=== PATIENT | female | born 1955 | race Hispanic/Latino ===

== ENCOUNTER 2017-02-13 17:47 | Inpatient (IN) | payer BC ==
[2017-02-13 17:59] VITALS: BMI 52.2
[2017-02-13 18:21] LABS: ADD MANUAL DIFF? NO
[2017-02-13 18:24] LABS: BASO # 0.08 K/mm3 (0.0-2.0); BASO % 0.6 % (0.0-3.0); EOS # 0.2 (0.0-0.7); EOS % 1.9 % (1.5-5.0); GRAN % 80.7 % (50.0-68.0); HEMATOCRIT 35.7 % (36.0-48.0); LYMPH # 1.3 (1.2-3.4); LYMPH % 10.3 % (22.0-35.0); MEAN CORPUSCULAR HGB CONC 30.3 g/dl (31.0-37.0); MEAN PLATELET VOLUME 9.6 fl (7.0-11.0); MONO # 0.8 (0.1-0.6); MONO % 6.5 % (1.0-6.0); PLATELET COUNT 325 10^3/uL (120.0-450.0); RED CELL DISTRIBUTION WIDTH 15.6 % (11.5-14.5); WHITE BLOOD COUNT 12.9 10^3/ul (4.5-11.0)
[2017-02-13 18:26] LABS: VENOUS BLOOD GAS BASE EXCESS 2.8 mmol/L (0.0-2.0); VENOUS BLOOD PH 7.36 (7.32-7.43)
--- NOTE | 2017-02-13 18:29 | ED PDOC ---
Arrival/HPI <Josh Gill - Last Filed: 02/13/17 20:19> <Darek Olson - Last Filed: 02/16/17 11:45> - General Chief Complaint: Shortness Of Breath Time Seen by Provider: 02/13/17 17:48 - History of Present Illness Narrative History of Present Illness (Text): 61F c/o SOB worse w exertion and lying flat worsening over the last month. she reports occasionally productive cough and says her pcp rx levaquin and then a zpack but she is not better. she has to sleep sitting up at night and recently noticed swelling in her legs and abdomen. no fever. (Darek Olson) Past Medical History - Infectious Disease Hx of Infectious Diseases: None - Cardiac Hx Hypertension: Yes - Pulmonary Hx Asthma: Yes - Musculoskeletal/Rheumatological Hx Osteoarthritis: Yes - Gastrointestinal Hx Crohn's Disease: Yes - Psychiatric Hx Substance Use: No - Surgical History Hx Section: Yes (x1) Hx Tubal Ligation: Yes - Anesthesia Hx Anesthesia Reactions: No Hx Malignant Hyperthermia: No <Darek Olson - Last Filed: 02/16/17 11:45> Family/Social History Family/Social History: Other (nc) Smoking Status: Former Smoker Hx Alcohol Use: No Hx Substance Use: No <Darek Olson - Last Filed: 02/16/17 11:45> Allergies/Home Meds <Josh Gill - Last Filed: 02/13/17 20:19> <Darek Olson - Last Filed: 02/16/17 11:45> Allergies/Adverse Reactions: Allergies strawberry Allergy (Verified 02/13/17 17:48) RASH Home Medications: Home Meds Medication Instructions Recorded Confirmed Albuterol Sulfate [Proair Hfa] 1 puff INH Q4 02/13/17 02/13/17 Budesonide/Formoterol Fumarate 1 puff INH BID 02/13/17 02/13/17 [Symbicort 160-4.5 Mcg Inhaler] Lisinopril [Zestril] 40 mg PO DAILY 02/13/17 02/13/17 Mesalamine W/Cleansing Wipes 4 gm [place] DAILY 02/13/17 02/13/17 [Mesalamine 4 gm/60 ml Kit] Mesalamine [Lialda] 1.2 gm PO DAILY 02/13/17 02/13/17 Mupirocin 2% Cream [Bactroban 1 % TOP DAILY 02/13/17 02/13/17 Cream] traMADol [Ultram] 50 mg PO Q8 02/13/17 02/13/17 Review of Systems - Physician Review All systems were reviewed & negative as marked: Yes - Review of Systems Constitutional: absent: Fevers Respiratory: SOB, Cough, Sputum Cardiovascular: Edema. absent: Chest Pain, Calf Pain Gastrointestinal: absent: Nausea, Vomiting <Darek Olson - Last Filed: 02/16/17 11:45> Physical Exam Vital Signs Reviewed: Yes Pain Distress: None Mental Status: Positive for: Alert and Oriented X 3 - Systems Exam Head: Present: Atraumatic Pupils: Present: PERRL Mouth: Present: Moist Mucous Membranes Neck: Present: Normal Range of Motion Respiratory/Chest: Present: Clear to Auscultation, Decreased Breath Sounds. No : Respiratory Distress, Accessory Muscle Use Cardiovascular: Present: Regular Rate and Rhythm. No: Murmurs Abdomen: Present: Other (pitting edema in lower abdomen). No: Tenderness, Distention Upper Extremity: Present: NORMAL PULSES Lower Extremity: Present: Edema (3+ BLE), NORMAL PULSES Neurological: Present: GCS=15, Motor Func Grossly Intact, Normal Sensory Function Skin: Present: Warm, Dry Psychiatric: Present: Alert, Oriented x 3 <Darek Olson - Last Filed: 02/16/17 11:45> Vital Signs Pulse Resp BP Pulse Ox 02/13/17 22:23 96 H 24 139/98 H 96 02/13/17 18:29 174/93 H 02/13/17 17:47 24 92 L Medical Decision Making <Josh Gill - Last Filed: 02/13/17 20:19> <Darek Olson - Last Filed: 02/16/17 11:45> ED Course and Treatment: ecg- nsr 99, LAFB, no acute ischemia (Darek Olson) - Lab Interpretations Lab Results: 02/14/17 06:30 02/14/17 06:30 Lab Results 02/14/17 06:30: WBC 11.4 H, RBC 4.50, Hgb 10.2 L, Hct 34.6 L, MCV 76.9 L, MCH 22.7 L, MCHC 29.5 L, RDW 15.7 H, Plt Count 332, MPV 9.5, Gran % 77.3 H, Lymph % (Auto) 12.8 L, [place] % (Auto) 7.4 H, Eos % (Auto) 1.9, Baso % (Auto) 0.6, Gran # 8.84 H, Lymph # 1.5, [place] # 0.9 H, Eos # 0.2, Baso # 0.07, Sodium 143, Potassium 3.4 L, Chloride 101, Carbon Dioxide 34 H, Anion Gap 11, BUN 12, Creatinine 0.6, Est GFR ( Amer) > 60, Est GFR (Non-Af Amer) > 60, Random Glucose 111 H, Hemoglobin A1c 6.6 H, Calcium 8.4, Magnesium 2.1, Total Bilirubin 0.9, AST 35, ALT 43, Alkaline Phosphatase 69, Troponin I 0.06, Total Protein 6.2, Albumin 3.4, Globulin 2.8, Albumin/Globulin Ratio 1.2, Triglycerides 71, Cholesterol 121 L, LDL Cholesterol Direct 73, HDL Cholesterol 33 02/13/17 18:10: WBC 12.9 H, RBC 4.70, Hgb 10.8 L, Hct 35.7 L, MCV 76.0 L, MCH 23.0 L, MCHC 30.3 L, RDW 15.6 H, Plt Count 325, MPV 9.6, Gran % 80.7 H, Lymph % (Auto) 10.3 L, [place] % (Auto) 6.5 H, Eos % (Auto) 1.9, Baso % (Auto) 0.6, Gran # 10.40 H, Lymph # 1.3, [place] # 0.8 H, Eos # 0.2, Baso # 0.08, pO2 60 H, VBG pH 7.36, VBG pCO2 52.0, VBG HCO3 29.4 H, VBG Total CO2 31.0 H, VBG O2 Sat (Calc) 91.4 H, VBG Base Excess 2.8 H, VBG Potassium 3.6, Glucose 129 H, Lactate 1.3, FiO2 21.0, Sodium 142.0, Potassium 3.6, Chloride 108.0 H, Carbon Dioxide 29, Anion Gap 11, BUN 16, Creatinine 0.6, Est GFR ( Amer) > 60, Est GFR (Non- Af Amer) > 60, Random Glucose 126 H, Calcium 8.5, Total Bilirubin 1.0, AST 44 H , ALT 47, Alkaline Phosphatase 73, Troponin I 0.05, NT-Pro-B Natriuret Pep 3350 H, Total Protein 6.5, Albumin 3.5, Globulin 3.0, Albumin/Globulin Ratio 1.2, Venous Blood Potassium 3.6 - RAD Interpretation Radiology Orders: 02/13/17 18:19 CHEST PORTABLE [RAD] Stat - Medication Orders Current Medication Orders: Albuterol/Ipratropium (Duoneb 3 Mg/0.5 Mg (3 Ml) Ud) 3 ml IH Q4 [facility] Last Admin: 02/16/17 08:30 Dose: Not Given Non-Admin Reason: Patient in Cardiology Aspirin (Aspirin) 325 mg PO DAILY [facility] Last Admin: 02/16/17 06:32 Dose: 325 MG Betamethasone/Clotrimazole (Lotrisone) 1 gm TOP BID [facility] Last Admin: 02/15/17 17:55 Dose: Not Given Non-Admin Reason: Patient Refused Clopidogrel Bisulfate (Plavix) 75 mg PO DAILY [facility] Last Admin: 02/16/17 06:33 Dose: 75 MG Furosemide (Lasix) 40 mg IVP DAILY [facility] Last Admin: 02/15/17 09:23 Dose: 40 MG MAR Blood Pressure Document 02/15/17 09:23 [facility] (Rec: 02/15/17 09:24 [id number] Blood Pressure Blood Pressure (100/60-150/90) 134/87 IVP Administration Document 02/15/17 09:23 [facility] (Rec: 02/15/17 09:24 [id number] Charges for Administration # of IVP Administrations 1 Lisinopril (Zestril) 40 mg PO DAILY [facility] Last Admin: 02/16/17 06:33 Dose: 40 MG Zolpidem Tartrate (Ambien) 5 mg PO HS PRN; Protocol PRN Reason: Insomnia Last Admin: 02/15/17 22:43 Dose: 5 MG Behavioural Document 02/15/17 22:43 MS (Rec: 02/15/17 22:43 MS [id number]) Maintenance Maintenance Dose No Nonmedicinal Nonmedicinal Interventions Redirect Therapeutic Communication Behavior Behavior for Medication: Insomnia Discontinued Medications Atropine Sulfate (Atropine) Confirm Administered Dose 1 mg .ROUTE .STSproutel-MED ONE Stop: 02/16/17 06:54 Last Admin: 02/16/17 11:06 Dose: Bivalirudin (Angiomax) Confirm Administered Dose 250 mg IV .STK-MED ONE Stop: 02/16/17 06:54 Last Admin: 02/16/17 11:04 Dose: 250 MG Comments: AngioMax IV Bolus 19 ml was given @ 0809, followed by an IV Drip @ 44 ml/hr - Discontinued @ 0841. eMAR Start Stop Document 02/16/17 11:04 KPA (Rec: 02/16/17 11:05 KPA [id number]) Intravenous Solution Start Date 02/16/17 Start Time 08:09 End Date 02/16/17 End time 08:41 Total Infusion Time 32 Clopidogrel Bisulfate (Plavix) 600 mg PO STAT STA Stop: 02/15/17 12:25 Last Admin: 02/15/17 12:43 Dose: 600 MG Clopidogrel Bisulfate (Plavix) Confirm Administered Dose 75 mg .ROUTE .Intrallect-MED ONE Stop: 02/16/17 06:32 Enoxaparin Sodium (Lovenox) 120 mg SC Q12H TIESHA PRN Reason: Protocol Last Admin: 02/15/17 07:44 Dose: 120 MG Subcutaneous Administrations Document 02/15/17 07:44 SPA (Rec: 02/15/17 07:44 SPA [id number]) Injection Site MAR Injection Site Right Abdomen Charges for Administration # of Subcutaneous Administrations 1 Eptifibatide (Integrilin Bolus) Confirm Administered Dose 60 mg IVP .STK-MED ONE Stop: 02/16/17 08:30 Last Admin: 02/16/17 08:30 Dose: 22.6 MG Comments: Dr. Leighann Leong adm. Integrilin IV Bolus 11.3 ml, an additional dose of Integrilin IV Bolus 11.3 ml was given @ 0840 IVP Administration Document 02/16/17 08:30 KPA (Rec: 02/16/17 11:13 KPA [id number]) Charges for Administration # of IVP Administrations 2 Fentanyl (Fentanyl) Confirm Administered Dose 100 mcg .ROUTE .STK-MED ONE Stop: 02/16/17 07:19 Last Admin: 02/16/17 07:55 Dose: 100 MCG Comments: Dr. Leighann Leong adm. Fentanyl 50 mcg IV @ 0755, an additional dose of Fentanyl 50 mcg IV @ 0758 MAR Pain Assessment Document 02/16/17 07:55 KPA (Rec: 02/16/17 11:07 KPA [id number]) Pain Reassessment Is this a pain reassessment? No Sleep Is patient sleeping during reassessment? No Presence of Pain Presence of Pain Yes Furosemide (Lasix) 40 mg IVP STAT STA Stop: 02/13/17 18:20 Last Admin: 02/13/17 18:29 Dose: 40 MG MAR Blood Pressure Document 02/13/17 18:29 JOL (Rec: 02/13/17 18:29 [id number]) Blood Pressure Blood Pressure (100/60-150/90) 174/93 IVP Administration Document 02/13/17 18:29 JOL (Rec: 02/13/17 18:29 [facility] [id number]) Charges for Administration # of IVP Administrations 1 Nitroglycerin/Dextrose (Nitroglycerin 50 Mg/250 Ml D5w) Confirm Administered Dose 250 mls @ ud IV .STK-MED ONE Stop: 02/16/17 06:55 Last Admin: 02/16/17 11:15 Dose: Heparin Sodium (Porcine) (Heparin 1000 Units/500 Ml Ns) Confirm Administered Dose 1,500 mls @ ud IV .STK-MED ONE Stop: 02/16/17 06:55 Heparin Sodium (Porcine) (Heparin 1000 Units/500 Ml Ns) Confirm Administered Dose 500 mls @ ud IV .STK-MED ONE Stop: 02/16/17 08:27 Iodixanol (Visipaque 320 Mg/Ml 100 Ml) Confirm Administered Dose 100 ml IV .STK- MED ONE Stop: 02/16/17 06:55 Iodixanol (Visipaque 320 Mg/Ml 200 Ml) Confirm Administered Dose 200 ml IV .STK- MED ONE Stop: 02/16/17 06:55 Iodixanol (Visipaque 320 Mg/Ml 100 Ml) Confirm Administered Dose 100 ml IV .STK- MED ONE Stop: 02/16/17 08:36 Iohexol (Omnipaque 350mg/Ml 50 Ml) Confirm Administered Dose 50 ml .ROUTE .STK- MED ONE Stop: 02/16/17 06:55 Lidocaine HCl (Lidocaine 2% 20ml Vial) Confirm Administered Dose 20 ml .ROUTE .STK-MED ONE Stop: 02/16/17 06:54 Midazolam HCl (Versed Inj) Confirm Administered Dose 2 mg .ROUTE .STK-MED ONE Stop: 02/16/17 07:18 Last Admin: 02/16/17 07:53 Dose: 2 MG Comments: Dr. Leighann Leong adm. Versed 2 mg IV was given @ 0753. Midazolam HCl (Versed Inj) Confirm Administered Dose 2 mg .ROUTE .STK-MED ONE Stop: 02/16/17 08:00 Last Admin: 02/16/17 07:59 Dose: 1 MG Phenylephrine HCl (Phenylephrine Inj) Confirm Administered Dose 10 mg .ROUTE .STK-MED ONE Stop: 02/16/17 06:54 Last Admin: 02/16/17 11:15 Dose: Potassium Chloride (K-Dur 20 Meq Er Tab) 40 meq PO ONCE ONE Stop: 02/14/17 08:28 Last Admin: 02/14/17 10:16 Dose: 40 MEQ Prasugrel (Effient) Confirm Administered Dose 20 mg .ROUTE .STK-MED ONE Stop: 02/16/17 08:43 Last Admin: 02/16/17 08:46 Dose: 20 MG Disposition/Present on Arrival - Present on Arrival Any Indicators Present on Arrival: No - Disposition Have Diagnosis and Disposition been Completed?: Yes Disposition Time: 07:00 <Josh Gill - Last Filed: 02/13/17 20:19> - Present on Arrival History of DVT/PE: No History of Uncontrolled Diabetes: No Urinary Catheter: No History of Decub. Ulcer: No History Surgical Site Infection Following: None <Darek Olson - Last Filed: 02/16/17 11:45> - Disposition Diagnosis: Congestive heart failure (CHF) Disposition: HOSPITALIZED Patient Problems: Current Active Problems Problem Status Diagnosed Congestive heart failure (CHF) Acute Condition: FAIR Physician Patient Turnover Patient Signed Over To: Josh Gill Handoff Comments: admit pending wrkup <Darek Olson - Last Filed: 02/16/17 11:45>
[2017-02-13 18:35] LABS: ALB/GLOB RATIO 1.2 (1.1-1.8); ALKALINE PHOSPHATASE 73 U/L (38-133); ALT/SGPT 47 U/L (7-56); AST/SGOT 44 U/L (15-39); BLOOD UREA NITROGEN 16 mg/dL (7-21); CALCIUM 8.5 mg/dL (8.4-10.5); CARBON DIOXIDE 29 mmol/L (21-33); CHLORIDE 103 mmol/L (98-107); GFR AFRICAN-AMERICAN > 60; GLUCOSE,RANDOM 126 mg/dL (70-110); POTASSIUM 3.6 mmol/L (3.6-5.0); SODIUM 139 mmol/L (132-148); TOTAL PROTEIN 6.5 g/dL (5.8-8.3)
[2017-02-13 18:47] LABS: TROPONIN I 0.05 ng/mL
--- NOTE | 2017-02-13 19:23 | ED PDOC ---
Arrival/HPI - General Chief Complaint: Shortness Of Breath Time Seen by Provider: 02/13/17 17:48 Past Medical History - Infectious Disease Hx of Infectious Diseases: None - Cardiac Hx Hypertension: Yes - Pulmonary Hx Asthma: Yes - Musculoskeletal/Rheumatological Hx Osteoarthritis: Yes - Gastrointestinal Hx Crohn's Disease: Yes - Psychiatric Hx Substance Use: No - Surgical History Hx Section: Yes (x1) Hx Tubal Ligation: Yes - Anesthesia Hx Anesthesia Reactions: No Hx Malignant Hyperthermia: No Family/Social History Family/Social History: Other (nc) Smoking Status: Former Smoker Hx Alcohol Use: No Hx Substance Use: No Allergies/Home Meds Allergies/Adverse Reactions: Allergies strawberry Allergy (Verified 02/13/17 17:48) RASH Home Medications: Home Meds Medication Instructions Recorded Confirmed Albuterol Sulfate [Proair Hfa] 1 puff INH Q4 02/13/17 02/13/17 Budesonide/Formoterol Fumarate 1 puff INH BID 02/13/17 02/13/17 [Symbicort 160-4.5 Mcg Inhaler] Lisinopril [Zestril] 40 mg PO DAILY 02/13/17 02/13/17 Mesalamine W/Cleansing Wipes 4 gm [place] DAILY 02/13/17 02/13/17 [Mesalamine 4 gm/60 ml Kit] Mesalamine [Lialda] 1.2 gm PO DAILY 02/13/17 02/13/17 Mupirocin 2% Cream [Bactroban 1 % TOP DAILY 02/13/17 02/13/17 Cream] traMADol [Ultram] 50 mg PO Q8 02/13/17 02/13/17 Physical Exam Vital Signs Resp BP Pulse Ox 02/13/17 18:29 174/93 H 02/13/17 17:47 24 92 L Medical Decision Making - Lab Interpretations Lab Results: 02/13/17 18:10 02/13/17 18:10 Lab Results 02/13/17 18:10: WBC 12.9 H, RBC 4.70, Hgb 10.8 L, Hct 35.7 L, MCV 76.0 L, MCH 23.0 L, MCHC 30.3 L, RDW 15.6 H, Plt Count 325, MPV 9.6, Gran % 80.7 H, Lymph % (Auto) 10.3 L, [place] % (Auto) 6.5 H, Eos % (Auto) 1.9, Baso % (Auto) 0.6, Gran # 10.40 H, Lymph # 1.3, [place] # 0.8 H, Eos # 0.2, Baso # 0.08, pO2 60 H, VBG pH 7.36, VBG pCO2 52.0, VBG HCO3 29.4 H, VBG Total CO2 31.0 H, VBG O2 Sat (Calc) 91.4 H, VBG Base Excess 2.8 H, VBG Potassium 3.6, Glucose 129 H, Lactate 1.3, FiO2 21.0, Sodium 142.0, Potassium 3.6, Chloride 108.0 H, Carbon Dioxide 29, Anion Gap 11, BUN 16, Creatinine 0.6, Est GFR ( Amer) > 60, Est GFR (Non- Af Amer) > 60, Random Glucose 126 H, Calcium 8.5, Total Bilirubin 1.0, AST 44 H , ALT 47, Alkaline Phosphatase 73, Troponin I 0.05, NT-Pro-B Natriuret Pep 3350 H, Total Protein 6.5, Albumin 3.5, Globulin 3.0, Albumin/Globulin Ratio 1.2, Venous Blood Potassium 3.6 - RAD Interpretation Radiology Orders: 02/13/17 18:19 CHEST PORTABLE [RAD] Stat - Medication Orders Current Medication Orders: Discontinued Medications Furosemide (Lasix) 40 mg IVP STAT STA Stop: 02/13/17 18:20 Last Admin: 02/13/17 18:29 Dose: 40 MG MAR Blood Pressure Document 02/13/17 18:29 JOL (Rec: 02/13/17 18:29 [id number]) Blood Pressure Blood Pressure (100/60-150/90) 174/93 IVP Administration Document 02/13/17 18:29 JO (Rec: 02/13/17 18:29 [id number]) Charges for Administration # of IVP Administrations 1 Disposition/Present on Arrival - Present on Arrival History of DVT/PE: No History of Uncontrolled Diabetes: No Urinary Catheter: No History of Decub. Ulcer: No History Surgical Site Infection Following: None
--- NOTE | 2017-02-13 19:36 | ED PDOC ---
Physical Exam Vital Signs Reviewed: Yes Vital Signs Resp BP Pulse Ox 02/13/17 18:29 174/93 H 02/13/17 17:47 24 92 L Medical Decision Making ED Course and Treatment: 02/13/17 19:00 Case signed out to me from the day shift by Dr. Olson, pending imaging, reevaluation and disposition. The patient is a 61 year old female who came into the emergency department earlier today for evaluation of shortness of breath. EKG, Chest X-ray, and lab work were ordered by previous physician. Patient given Lasix. Chest X-ray Impression: As read by me, cardiomegaly with mild CHF. 02/13/17 19:[address] Roberson, who is aware and agrees with the plan to place patient in Telemetry for observation for CHF. I have discussed the results and plan with the patient, who expresses understanding. Patient given the opportunity to ask question, all questions were answered and there is agreement with the plan to be admitted to the hospital. 20:01 - Lab Interpretations Lab Results: 02/13/17 18:10 02/13/17 18:10 Lab Results 02/13/17 18:10: WBC 12.9 H, RBC 4.70, Hgb 10.8 L, Hct 35.7 L, MCV 76.0 L, MCH 23.0 L, MCHC 30.3 L, RDW 15.6 H, Plt Count 325, MPV 9.6, Gran % 80.7 H, Lymph % (Auto) 10.3 L, [place] % (Auto) 6.5 H, Eos % (Auto) 1.9, Baso % (Auto) 0.6, Gran # 10.40 H, Lymph # 1.3, [place] # 0.8 H, Eos # 0.2, Baso # 0.08, pO2 60 H, VBG pH 7.36, VBG pCO2 52.0, VBG HCO3 29.4 H, VBG Total CO2 31.0 H, VBG O2 Sat (Calc) 91.4 H, VBG Base Excess 2.8 H, VBG Potassium 3.6, Glucose 129 H, Lactate 1.3, FiO2 21.0, Sodium 142.0, Potassium 3.6, Chloride 108.0 H, Carbon Dioxide 29, Anion Gap 11, BUN 16, Creatinine 0.6, Est GFR ( Amer) > 60, Est GFR (Non- Af Amer) > 60, Random Glucose 126 H, Calcium 8.5, Total Bilirubin 1.0, AST 44 H , ALT 47, Alkaline Phosphatase 73, Troponin I 0.05, NT-Pro-B Natriuret Pep 3350 H, Total Protein 6.5, Albumin 3.5, Globulin 3.0, Albumin/Globulin Ratio 1.2, Venous Blood Potassium 3.6 I have reviewed the lab results: Yes - RAD Interpretation Radiology Orders: 02/13/17 18:19 CHEST PORTABLE [RAD] Stat - Medication Orders Current Medication Orders: Albuterol/Ipratropium (Duoneb 3 Mg/0.5 Mg (3 Ml) Ud) 3 ml IH Q4 TIESHA Furosemide (Lasix) 40 mg IVP DAILY TIESHA Lisinopril (Zestril) 40 mg PO DAILY TIESHA Discontinued Medications Furosemide (Lasix) 40 mg IVP STAT STA Stop: 02/13/17 18:20 Last Admin: 02/13/17 18:29 Dose: 40 MG MAR Blood Pressure Document 02/13/17 18:29 JO (Rec: 02/13/17 18:29 [id number][facility] Blood Pressure Blood Pressure (100/60-150/90) 174/93 IVP Administration Document 02/13/17 18:29 JO (Rec: 02/13/17 18:29 [id number]) Charges for Administration # of IVP Administrations 1 - Scribe Statement The provider has reviewed the documentation as recorded by the Broderick Hanks Provider Scribe Attestation: All medical record entries made by the Broderick were at my direction and personally dictated by me. I have reviewed the chart and agree that the record accurately reflects my personal performance of the history, physical exam, medical decision making, and the department course for this patient. I have also personally directed, reviewed, and agree with the discharge instructions and disposition. Disposition/Present on Arrival - Present on Arrival Any Indicators Present on Arrival: No History of DVT/PE: No History of Uncontrolled Diabetes: No Urinary Catheter: No History of Decub. Ulcer: No History Surgical Site Infection Following: None - Disposition Have Diagnosis and Disposition been Completed?: Yes Diagnosis: Congestive heart failure (CHF) Disposition: HOSPITALIZED Disposition Time: 20:00 Patient Problems: Current Active Problems Problem Status Diagnosed Congestive heart failure (CHF) Acute Condition: FAIR
[2017-02-13] MEDS: Albuterol-Ipratrop 3 mg / 0.5 (3 ml) UD IH SCH (20:15)
[2017-02-14] MEDS: Albuterol-Ipratrop 3 mg / 0.5 (3 ml) UD IH SCH ×4 (07:42→20:19)
--- NOTE | 2017-02-14 07:45 | RAD ---
HISTORY: sob COMPARISON: No prior. FINDINGS: LUNGS: Overall interstitial and perihilar bronchovascular markings appear increased chronicity of this is unknown. This markings slightly more conspicuous in the right mid to lateral lung zone some concomitant right visual fluid here and/or pleural thickening with or without discoid atelectasis in the right mid lung zone are some considerations. The study is limited its a apical lordotic single frontal view patient with a very large body habitus. PLEURA: No pneumothorax apparent. Small right pleural effusion possible CARDIOVASCULAR: The heart is enlarged other findings as above OSSEOUS STRUCTURES: No significant abnormalities. VISUALIZED UPPER ABDOMEN: Normal. OTHER FINDINGS: Car IMPRESSION: Limited exam due to large body habitus and projectional effects cardiomegaly and mild pulmonary venous congestion with small right pleural effusion need be considered. A mild congestive heart failure status is 1 consideration. A concomitant interstitial lung disease cannot be excluded
[2017-02-14 07:47] LABS: ADD MANUAL DIFF? NO
[2017-02-14 07:55] LABS: BASO # 0.07 K/mm3 (0.0-2.0); BASO % 0.6 % (0.0-3.0); EOS # 0.2 (0.0-0.7); EOS % 1.9 % (1.5-5.0); GRAN # 8.84 (1.4-6.5); GRAN % 77.3 % (50.0-68.0); HEMATOCRIT 34.6 % (36.0-48.0); LYMPH # 1.5 (1.2-3.4); LYMPH % 12.8 % (22.0-35.0); MEAN CELL VOLUME 76.9 fL (80.0-105.0); MEAN CORPUSCULAR HEMOGLOBIN 22.7 pg (25.0-35.0); MEAN CORPUSCULAR HGB CONC 29.5 g/dl (31.0-37.0); MEAN PLATELET VOLUME 9.5 fl (7.0-11.0); MONO # 0.9 (0.1-0.6); MONO % 7.4 % (1.0-6.0); PLATELET COUNT 332 10^3/uL (120.0-450.0); RED CELL DISTRIBUTION WIDTH 15.7 % (11.5-14.5); WHITE BLOOD COUNT 11.4 10^3/ul (4.5-11.0)
[2017-02-14 08:10] LABS: ALB/GLOB RATIO 1.2 (1.1-1.8); ALKALINE PHOSPHATASE 69 U/L (38-133); ALT/SGPT 43 U/L (7-56); AST/SGOT 35 U/L (15-39); BILIRUBIN,TOTAL 0.9 mg/dL (0.2-1.3); BLOOD UREA NITROGEN 12 mg/dL (7-21); CALCIUM 8.4 mg/dL (8.4-10.5); CARBON DIOXIDE 34 mmol/L (21-33); CHLORIDE 101 mmol/L (95-110); CHOLESTEROL 121 mg/dL (130-200); GFR AFRICAN-AMERICAN > 60; GLUCOSE,RANDOM 111 mg/dL (70-110); POTASSIUM 3.4 mmol/L (3.6-5.0); SODIUM 143 mmol/L (132-148); TOTAL PROTEIN 6.2 g/dL (5.8-8.3)
[2017-02-14] MEDS ORDERED: Potassium Chloride 20 mEq ER Tab PO ONE (08:27)
[2017-02-14 08:36] LABS: TROPONIN I 0.06 ng/mL
--- NOTE | 2017-02-14 08:48 | CON ---
DATE: 02/14/2017 HISTORY OF PRESENT ILLNESS: The patient is a 61-year-old woman who presents with progressive shortne ss of breath resulting in pedal edema as well over the past several weeks. In addition, she has complained of exertional pressure in her chest while climbing up her stairs. PAST MEDICAL HISTORY: Notable for hypertension with borderline diabetes mellitus. No previous cardiac history is noted.[MD1] No previous myocardial infarction. SOCIAL HISTORY: Denies smoking. REVIEW OF SYSTEMS: A 14-point review of systems was reviewed in detail. Besides exertional chest pa in, pedal edema and progressive edema, there is no other cardiac symptomatology noted. No previous b leeding history. PHYSICAL EXAMINATION: GENERAL: The patient is an obese woman in no acute distress. Blood pressure 130/70. The heart rate is in the 80s. NECK: Negative JVD. LUNGS: Without rales. HEART: Reveals S1, S2. EXTREMITIES: Trace to 1+ edema. EKG shows left anterior hemiblock. LABORATORIES: ProBNP is greater than 3000. The potassium is 3.4, magnesium is pending. The troponi n is 0.05. Telemetry monitoring shows multiple episodes of short runs of ventricular tachycardia. IMPRESSION: 1. Acute systolic congestive heart failure. 2. Questionable auk-IM-galbyusrr myocardial infarction. 3. Nonsustained ventricular tachycardia. 4. Diabetes mellitus. 5. Hypertension. 6. Hypokalemia. Given these findings, will continue the Lasix daily. Will obtain an echocardiogram today. Repeat troponin today. Will increase her Lovenox to full dose Lovenox for acute coronary syndrome. Will replace the potassium and magnesium as necessary. [MD1] Cb Leong MD cc: [id number] TT: 02/14/2017 08:47:53 Confirmation # [id number] Dictation # [id number] mn
[2017-02-14 09:03] LABS: MAGNESIUM 2.1 mg/dL (1.7-2.2)
--- NOTE | 2017-02-14 09:44 | HP ---
HISTORY OF PRESENT ILLNESS: The patient is a 61-year-old woman with a past medical history of hypertension and COPD who presented to [facility] for evaluation of a 1-week history of progressively worsening lower extremity edema, dyspnea, and 2-3 pillow orthopnea. The patient states that she was in her usual state of health until approximately 7-10 days prior to presentation to the Emergency Department when she developed some mild edema to her ankles. Over the following several days the patient reports increased swelling of her lower extremities with subsequent involvement of abdominal distention. The patient also reported decreased exercise tolerance and development of 2-3 pillow orthopnea associated with a cough intermittently productive of clear sputum. The patient denied chest pain, fevers, chills, or rigors, associated with her symptoms. However, given the worsening lower extremity edema, she opted for evaluation in the Emergency Department. Upon arrival to the ED she was noted to be afebrile and hemodynamically stable, however, she was tachypneic with a respiratory rate of 24, and hypoxic with an oxygen saturation of 92% on 2 L nasal cannula. Laboratory studies which were obtained demonstrated an elevated BNP of 3350, and the chest x-ray demonstrated pulmonary venous congestion with a small right pleural effusion. The patient was started on IV Lasix and admitted to telemetry [facility] for continued management of new onset congestive heart failure. PAST MEDICAL HISTORY: As per HPI, also morbid obesity. PAST SURGICAL HISTORY: . ALLERGIES: STRAWBERRIES, WHICH CAUSE A RASH. MEDICATIONS: Symbicort 160/4.5 mcg 1 puff b.i.d., ProAir HFA 2 puffs q. 4-6 hours p.r.n. dyspnea/wheeze, lisinopril 40 mg p.o. daily. FAMILY HISTORY: Significant for hypertension and diabetes. SOCIAL HISTORY: The patient reports a former [id number]-dlow smoking history, but quit 15 years ago. She reports social alcohol use, and denies illicit drug abuse. REVIEW OF SYSTEMS: A 14-point review of systems is negative, except as per HPI. PHYSICAL EXAMINATION: VITAL SIGNS: Temperature 98, pulse 87, blood pressure 130/69, respiratory rate 18, oxygen saturation 96% on 2 L nasal cannula. GENERAL: Morbidly obese woman lying in bed in no apparent distress. HEENT: PERRL, EOMI. No scleral icterus, no conjunctival pallor. NECK: No JVD, no bruits, no lymphadenopathy. LUNGS: Decreased breath sounds to the bases with bibasilar crackles. CARDIOVASCULAR: Regular rate and rhythm. Normal S1 and S2. ABDOMEN: Obese, normoactive bowel sounds, soft, nontender, nondistended. EXTREMITIES: Trace lower extremity edema bilaterally. NEUROLOGIC: Awake, alert and oriented x 3. No focal motor deficits. LABORATORY DATA: WBC 12.9, with 80% neutrophils, hemoglobin 11, hematocrit 36, platelets 325. Chemistry reviewed and unremarkable. BNP 3350, troponin 0.05. IMAGING STUDIES: Chest x-ray demonstrates pulmonary venous congestion and a small right pleural effusion. ASSESSMENT: The patient is a 61-year-old woman with past medical history of hypertension, chronic obstructive pulmonary disease, and morbid obesity, who presented to [facility] for evaluation of 1-week history of increasing lower extremity edema, orthopnea, exertional dyspnea, and who was admitted to the telemetry [facility] for management of new onset acute systolic heart failure. PLAN: 1. Acute systolic heart failure exacerbation. Continue with Lasix 40 mg IV daily. The patient has diuresed 2.6 L since admission, and reports significant improvement in her respiratory status. Dr. Leong of cardiology has been consulted for further evaluation and recommendations. An echocardiogram has been ordered, and pending. Will cycle cardiac enzymes to rule out possibility of ischemic injury as the etiology of new onset heart failure. 2. Chronic obstructive pulmonary disease. Continue with supplemental oxygen and bronchodilators as needed. 3. Hypertension. Blood pressure controlled. Continue with lisinopril 40 mg p.o. daily. 4. Morbid obesity. The patient has been counseled on lifestyle modifications. 5. Microcytic anemia. Labs demonstrate a hemoglobin of 11 with an MCV of 76. The patient denies any overt blood loss. Will arrange for outpatient GI followup and continued anemia workup. 6. Prophylaxis. GI prophylaxis not indicated, as patient is eating. Continue with SCDs for DVT prophylaxis. CODE STATUS: Full Code. Jl Roberson MD cc: [id number] TT: 02/14/2017 09:44:19 jn EBRNARD
[2017-02-14] MEDS: Enoxaparin 120 mg Syringe SC SCH ×2 (10:17→20:53)
--- NOTE | 2017-02-14 15:40 | CARD ---
APPROVED REPORT EKG Measurement Heart [id number] [place] [id number] <Conclusion> Sinus rhythm PVC IVCD LAD, LAHB PRWP V 1 - 6 NSSTW changes
[2017-02-14] MEDS: Clotrimazole/Betamethasone Cream(15 gm) TOP SCH (18:51)
[2017-02-15] MEDS: Albuterol-Ipratrop 3 mg / 0.5 (3 ml) UD IH SCH ×6 (00:19→19:47)
[2017-02-15] MEDS: Enoxaparin 120 mg Syringe SC SCH (07:44)
--- NOTE | 2017-02-15 08:48 | PN ---
DATE: 02/15/2017 SUBJECTIVE: The patient seen and examined at bedside on the telemetry a[facility]ander. No acute events overnig ht. She remains afebrile and hemodynamically stable. This morning, the patient reports continued im provement in her respiratory status and pedal edema. She states that overall she feels improved sinc e admission and otherwise offers no complaints. OBJECTIVE: VITAL SIGNS: Temperature 98.9, pulse 90, blood pressure 140/87, respiratory rate 20, oxygen saturati on 96% on 2 liters nasal cannula. GENERAL: Morbidly obese woman sitting up in her chair in no apparent distress. HEENT: PERRL, EOMI. No scleral icterus. No conjunctival pallor. NECK: No JVD, no bruits. LUNGS: Decreased breath sounds at the bases with faint bibasilar crackles. CARDIOVASCULAR: Regular rate and rhythm, normal S1, S2. ABDOMEN: Obese, normoactive bowel sounds, soft, nontender, nondistended. EXTREMITIES: Trace lower extremity edema bilaterally. NEUROLOGIC: Awake, alert and oriented x 3. No focal motor deficits. LABORATORY DATA: Morning labs are pending. ASSESSMENT: The patient is a 61-year-old woman with past medical history of hypertension, chronic ob structive pulmonary disease and morbid obesity who presents to [facility] for evaluation of a 1-week history of increasing lower extremity edema, orthopnea and exertional dyspnea, who was ad mitted to the telemetry [facility] for management of new onset acute systolic heart failure. PLAN: 1. Acute systolic heart failure exacerbation. Input from Dr. Leong of cardiology noted and appreciat ed. The patient has an echocardiogram that is ordered and pending. Cardiac enzymes are negative x 2 sets. Continue with Lasix 40 mg IV daily. The patient has been noted to diurese an additional 2.3 liters in the last 24 hours. 2. Chronic obstructive pulmonary disease. Continue with supplemental oxygen and bronchodilators as needed. 3. Hypertension. Blood pressure controlled. Continue with lisinopril 40 mg p.o. daily. 4. Morbid obesity. Again, the patient has been counseled on lifestyle modifications. 5. Microcytic anemia. Morning labs are pending. Again, the patient denies any overt blood loss. W ill arrange for outpatient GI followup and continued anemia workup. 6. Prophylaxis. GI prophylaxis not indicated as patient is eating. Continue with SCDs for DVT prop hylaxis. CODE STATUS: Full code. Jl Roberson MD cc: [id number] TT: 02/15/2017 08:48:02 Confirmation # [id number] Dictation # [id number] mn
[2017-02-15 09:14] LABS: ADD MANUAL DIFF? NO
[2017-02-15 09:16] LABS: BASO # 0.08 K/mm3 (0.0-2.0); BASO % 0.7 % (0.0-3.0); EOS # 0.3 (0.0-0.7); EOS % 2.4 % (1.5-5.0); GRAN # 8.59 (1.4-6.5); GRAN % 77.3 % (50.0-68.0); HEMATOCRIT 35.6 % (36.0-48.0); LYMPH # 1.3 (1.2-3.4); LYMPH % 11.9 % (22.0-35.0); MEAN CELL VOLUME 76.9 fL (80.0-105.0); MEAN CORPUSCULAR HEMOGLOBIN 22.9 pg (25.0-35.0); MEAN CORPUSCULAR HGB CONC 29.8 g/dl (31.0-37.0); MEAN PLATELET VOLUME 9.2 fl (7.0-11.0); MONO # 0.9 (0.1-0.6); MONO % 7.7 % (1.0-6.0); PLATELET COUNT 309 10^3/uL (120.0-450.0); RED CELL DISTRIBUTION WIDTH 15.7 % (11.5-14.5); WHITE BLOOD COUNT 11.1 10^3/ul (4.5-11.0)
[2017-02-15] MEDS: Clotrimazole/Betamethasone Cream(15 gm) TOP SCH ×2 (09:23→17:55)
[2017-02-15 09:30] LABS: ALB/GLOB RATIO 1.2 (1.1-1.8); ALKALINE PHOSPHATASE 64 U/L (38-133); ALT/SGPT 46 U/L (7-56); AST/SGOT 36 U/L (15-39); BILIRUBIN,TOTAL 0.8 mg/dL (0.2-1.3); BLOOD UREA NITROGEN 13 mg/dL (7-21); CALCIUM 8.6 mg/dL (8.4-10.5); CARBON DIOXIDE 35 mmol/L (21-33); CHLORIDE 100 mmol/L (98-107); GFR AFRICAN-AMERICAN > 60; GLUCOSE,RANDOM 151 mg/dL (70-110); POTASSIUM 4.1 mmol/L (3.6-5.0); SODIUM 140 mmol/L (132-148); TOTAL PROTEIN 6.5 g/dL (5.8-8.3)
--- NOTE | 2017-02-15 12:38 | PN ---
DATE: 02/15/2017 SUBJECTIVE: The patient's breathing is much improved. PHYSICAL EXAMINATION: VITAL SIGNS: Blood pressure is 124/87, the heart rate is in the 90s. NECK: Negative JVD. LUNGS: Without rales. HEART: Reveals S1, S2. EXTREMITIES: Decreasing edema. LABORATORY DATA: Troponin is up to 0.06. BUN and creatinine are unremarkable. Glucose is 151, the hemoglobin is 10.6. IMPRESSION: 1. Acute systolic congestive heart failure. 2. Borderline elevated troponins which may be consistent with non-ST elevation myocardial infarction . 3. Diabetes mellitus. 4. Anemia. 5. Obesity. PLAN: Given these findings, we will stop her subQ Lovenox today. Add aspirin and Plavix. I have di scussed cardiac catheterization with its risks, benefits with the patient in detail. She is agreeabl e. All questions were answered. The patient will be scheduled for cardiac catheterization in the [facility]. Cb Leong MD cc: [id number] TT: 02/15/2017 12:37:09 Confirmation # [id number] Dictation # [id number] tn
[2017-02-16] MEDS: Albuterol-Ipratrop 3 mg / 0.5 (3 ml) UD IH SCH ×6 (01:21→23:38)
[2017-02-16 04:23] LABS: PH,URINE 6.5 (4.7-8.0); URINE BILIRUBIN NEGATIVE (NEGATIVE); URINE BLOOD NEGATIVE (NEGATIVE); URINE GLUCOSE (UA) NEGATIVE (NEGATIVE); URINE KETONE NEGATIVE (NEGATIVE); URINE LEUKOCYTE ESTERASE SMALL Leu/uL (NEGATIVE); URINE PROTEIN NEGATIVE mg/dL (<30 mg/dL); URINE UROBILINOGEN 0.2 E.U./dL (<1 E.U./dL)
[2017-02-16 04:24] LABS: URINE APPEARANCE SLIGHT-CLOUDY (CLEAR); URINE COLOR YELLOW (YELLOW)
[2017-02-16 04:45] LABS: URINE EPITHELIAL CELLS 0 - 2 /hpf (0-5); URINE RBC 0 - 2 /hpf (0-2)
[2017-02-16 04:46] LABS: URINE BACTERIA RARE (NEG)
[2017-02-16 05:14] VITALS: O2SAT 97
[2017-02-16 05:25] LABS: ADD MANUAL DIFF? NO
[2017-02-16 05:41] LABS: BASO # 0.09 K/mm3 (0.0-2.0); BASO % 0.9 % (0.0-3.0); EOS # 0.3 (0.0-0.7); EOS % 2.6 % (1.5-5.0); GRAN # 7.46 (1.4-6.5); GRAN % 74.3 % (50.0-68.0); HEMATOCRIT 33.7 % (36.0-48.0); LYMPH # 1.4 (1.2-3.4); LYMPH % 13.8 % (22.0-35.0); MEAN CELL VOLUME 75.6 fL (80.0-105.0); MEAN CORPUSCULAR HEMOGLOBIN 22.6 pg (25.0-35.0); MEAN PLATELET VOLUME 9.5 fl (7.0-11.0); MONO # 0.8 (0.1-0.6); MONO % 8.4 % (1.0-6.0); PLATELET COUNT 289 10^3/uL (120.0-450.0); RED CELL DISTRIBUTION WIDTH 15.4 % (11.5-14.5)
[2017-02-16 05:46] LABS: INR 1.06 (0.93-1.08); PARTIAL THROMBOPLASTIN TIME 27.4 Seconds (23.7-30.8)
[2017-02-16 05:50] LABS: ALB/GLOB RATIO 1.2 (1.1-1.8); ALKALINE PHOSPHATASE 63 U/L (38-133); ALT/SGPT 45 U/L (7-56); AST/SGOT 28 U/L (15-39); BILIRUBIN,TOTAL 0.9 mg/dL (0.2-1.3); BLOOD UREA NITROGEN 12 mg/dL (7-21); CALCIUM 8.4 mg/dL (8.4-10.5); CARBON DIOXIDE 37 mmol/L (21-33); CHLORIDE 98 mmol/L (98-107); GFR AFRICAN-AMERICAN > 60; GLUCOSE,RANDOM 119 mg/dL (70-110); SODIUM 140 mmol/L (132-148); TOTAL PROTEIN 6.2 g/dL (5.8-8.3)
[2017-02-16] MEDS ORDERED: Phenylephrine 10 mg/ml Inj ONE (06:53)
[2017-02-16] MEDS ORDERED: Lidocaine 2% Inj (20ml) ONE (06:53)
[2017-02-16] MEDS ORDERED: Iohexol 350mgl/ml 50 ML ONE (06:54)
[2017-02-16] MEDS ORDERED: Nitroglycerin 50mg in D5W 250 ML IV ONE (06:54)
[2017-02-16] MEDS ORDERED: Iodixanol 320 MG/ML 100 ML BOTTLE IV ONE ×2 (06:54→08:35)
[2017-02-16] MEDS ORDERED: Iodixanol 320 MG/ML 200 ML BOTTLE IV ONE (06:54)
[2017-02-16] MEDS ORDERED: Midazolam 2 MG/2 ML VIAL ONE ×2 (07:17→07:59)
[2017-02-16] MEDS ORDERED: Eptifibatide 20 mg/10mL Inj IVP ONE (08:29)
--- NOTE | 2017-02-16 09:33 | CARDCATH ---
PROCEDURE DATE: 02/16/2017 HISTORY: The patient is a 61-year-old woman who presents with CHF. Her cardiac risk factors include hypertension, morbid obesity, and hypercholesterolemia. She was found to have elevated troponins consistent with a non-STEMI. Because of this, she was broug ht to the agriculture laboratory technician. PROCEDURE: Left heart catheterization with coronary angiography and left ventriculogram, followed by PTCA and stent of the LAD. The right femoral artery was cannulated with a 6-Swedish sheath. There were no complications. The findings on catheterization revealed a left ventricle that was globally hypokinetic. Estimated e jection fraction is 40%. Her coronary anatomy revealed a left main artery that was unremarkable. The LAD was diffusely diseased with a 95% stenosis in the mid-portion, followed by a long 70% stenose s. The diagonal vessels revealed diffuse atherosclerosis. The circumflex artery revealed a 95% stenosis in its proximal portion. The right coronary artery was selectively cannulized; found to be a dominant vessel. The RCA reveale d intimal irregularities without critical lesions. The patient was started on intravenous Angiomax. Integrilin was given because the patient was found to be resistant to Plavix. A guiding catheter was placed in the ostium of the left main artery. An 0.014 ATW wire used to cross the LAD lesion. A 2.0 balloon was utilized to predilate the lesion. This was followed by implanting a 2.75 mm x 30 mm drug-eluting stent deployed at 16 atmospheres of pr essure. Repeat coronary angiography revealed an excellent result with no residual stenosis and SANDI 3 flow. Angio-Seal was used to close the femoral artery site. The patient tolerated the procedure well. In summary, the procedure was successful PTCA and stent of a critically stenosed mid-LAD stenosis wit h a drug-eluting stent. Cardiac catheterization reveals 2-vessel CAD with of the left anterior descending and circumflex ryan ry. LV function was compromised with an EF of 40%. The patient was found to be Plavix resistant, and placed on Effient. Given these findings, the patient will need to remain on Effient for at least 1 year, and undergo a s trict cardiac risk reduction program. We will bring her back next week for PTCA and stent of the cir cumflex artery. Cb Leong MD cc: [id number] TT: 02/16/2017 09:33:28 jn
[2017-02-16] MEDS: Clotrimazole/Betamethasone Cream(15 gm) TOP SCH ×2 (11:10→19:11)
--- NOTE | 2017-02-16 20:52 | PN ---
DATE: 02/16/2017 The patient is in room 273, bed 3. She has no complaints, and is status post cardiac cath with 2 stent placements. There have been no a cute events overnight. Review of systems, at present, is unremarkable. Vital signs this morning were a temperature of 98 degrees, pulse rate of 87 degrees, blood pressure o f 133/84, with a respiratory rate of 20. On physical examination, the patient is lying in bed post-cath. She has no specific complaints at th is time. HENT: PERRLA, EOMI, no icterus present. NECK: Supple. No adenopathy, or jugular venous distention, or bruits are present. LUNGS: Clear bilaterally. HEART: Regular rate and rhythm. No murmurs, rubs, or gallops. ABDOMEN: Soft. It is nontender. Bowel sounds are normoactive. EXTREMITIES: Show no deformities or edema. NEUROLOGICALLY: There are no focal motor deficits. WBCs are 10.0, hemoglobin and hematocrit 10.1 and 33.7. Chemistry is essentially normal. Random glu cose of 119. Urinalysis is normal. The patient underwent cardiac catheterization this morning, as well as placement of 2 stents. CURRENT DIAGNOSES: 1. Congestive heart failure. 2. Coronary artery disease. Will continue current regimen. The patient most likely will be discharged home tomorrow. Pankaj Roberson MD cc: [id number] TT: 02/16/2017 20:51:46 Confirmation # [id number] Dictation # [id number] yanet
[2017-02-17] MEDS: Albuterol-Ipratrop 3 mg / 0.5 (3 ml) UD IH SCH ×2 (03:32→08:01)
[2017-02-17 08:04] LABS: ADD MANUAL DIFF? NO
[2017-02-17 08:10] LABS: BASO # 0.07 K/mm3 (0.0-2.0); BASO % 0.6 % (0.0-3.0); EOS # 0.2 (0.0-0.7); EOS % 2.2 % (1.5-5.0); GRAN # 8.86 (1.4-6.5); GRAN % 80.7 % (50.0-68.0); HEMATOCRIT 32.8 % (36.0-48.0); LYMPH # 1.1 (1.2-3.4); LYMPH % 9.9 % (22.0-35.0); MEAN CELL VOLUME 75.6 fL (80.0-105.0); MEAN CORPUSCULAR HEMOGLOBIN 22.4 pg (25.0-35.0); MEAN CORPUSCULAR HGB CONC 29.6 g/dl (31.0-37.0); MEAN PLATELET VOLUME 8.9 fl (7.0-11.0); MONO # 0.7 (0.1-0.6); MONO % 6.6 % (1.0-6.0); PLATELET COUNT 271 10^3/uL (120.0-450.0); RED CELL DISTRIBUTION WIDTH 15.5 % (11.5-14.5)
[2017-02-17 08:23] LABS: ALB/GLOB RATIO 1.2 (1.1-1.8); ALKALINE PHOSPHATASE 61 U/L (38-133); ALT/SGPT 43 U/L (7-56); AST/SGOT 50 U/L (15-39); BILIRUBIN,TOTAL 1.1 mg/dL (0.2-1.3); BLOOD UREA NITROGEN 10 mg/dL (7-21); CALCIUM 8.5 mg/dL (8.4-10.5); CARBON DIOXIDE 37 mmol/L (21-33); CHLORIDE 97 mmol/L (95-110); GFR AFRICAN-AMERICAN > 60; GLUCOSE,RANDOM 123 mg/dL (70-110); SODIUM 139 mmol/L (132-148); TOTAL PROTEIN 6.1 g/dL (5.8-8.3)
[2017-02-17] MEDS: Clotrimazole/Betamethasone Cream(15 gm) TOP SCH (09:23)
--- NOTE | 2017-02-17 09:55 | PN ---
DATE: 02/17/2017 SUBJECTIVE: The patient seen and examined at bedside on the telemetry a[facility]ander. No acute events overnight. She remains afebrile, hemodynamically stable and chest pain free. The patient underwent cardiac catheterization with Dr. Leong which demonstrated double-vessel CAD and mildly impaired LVEF of 40%. The patient is status post successful placement of drug-eluting stent to the 95% stenosed mid portion of the LAD and was also noted to have a 95% stenosis of the proximal portion of the circumflex artery. Arrangements will be made to have the patient return in 1 week to pursue stenting of the circumflex lesion. Otherwise the patient feels well and looks forward to discharge to home. OBJECTIVE: VITAL SIGNS: Temperature 98.6, pulse 90, blood pressure 111/65, respiratory rate 20, oxygen saturation 97% on room air. GENERAL: Morbidly obese woman sitting up in her chair in no apparent distress. HEENT: PERRL. EOMI. No scleral icterus. No conjunctival pallor. NECK: No JVD, no bruits. LUNGS: Clear to auscultation. CARDIOVASCULAR: Regular rate and rhythm. Normal S1 and S2. ABDOMEN: Obese, normoactive bowel sounds, soft, nontender, nondistended. EXTREMITIES: Trace lower extremity edema bilaterally. NEUROLOGIC: Awake, alert and oriented x 3. No focal motor deficits. LABORATORY DATA: WBC 11 with 80% neutrophils, hemoglobin 9.7, hematocrit 33, platelets 271. Chemistry reviewed and largely unremarkable. ASSESSMENT: The patient is a 61-year-old woman with past medical history of hypertension, chronic obstructive pulmonary disease and morbid obesity who presented to [facility] for evaluation of 1-week history of increasing lower extremity edema, orthopnea and exertional dyspnea and who was admitted to the telemetry [facility] for management of new onset acute systolic heart failure and who is now status post cardiac catheterization which demonstrated double-vessel coronary artery disease, status post drug-eluting stent placement to 95% stenosis of the mid portion of the left anterior descending. PLAN: 1. Acute systolic heart failure exacerbation, resolving. Input from Dr. Leong of cardiology noted and appreciated and the patient has diuresed quite satisfactorily since admission. Continue with Lasix 40 mg p.o. daily to facilitate continued diuresis; however, we hope that the patient's cardiac function will recover now she is status post PCI with stenting. 2. CAD, status post PCI with drug-eluting stent placement to 95% stenosis of the mid portion of the LAD. Input from Dr. Leong again greatly appreciated and arrangements will be made to bring the patient back later this week for stenting of the 95% lesion to the proximal RCA. The patient was noted to be Plavix resistant and thus will be placed on Effient 10 mg p.o. daily for at least 1 year and aspirin 325 mg p.o. daily indefinitely. Lifestyle modifications have been stressed to the patient and she will also need to enroll in a cardiac risk reduction program. 3. COPD. Continue with supplemental oxygen and bronchodilators as needed. 4. Hypertension. Blood pressure controlled. Continue with lisinopril 40 mg p.o. daily. 5. Morbid obesity. Again, the patient has been counseled on lifestyle modifications 6. Microcytic anemia. Labs demonstrate stable H and H. Arrangements will be made for outpatient GI followup. 7. Type 2 diabetes mellitus. Laboratory studies on this admission demonstrated hemoglobin A1c of 6.6. No indication at present for initiation of medications; however, the patient has been counseled on the need for lifestyle modifications. 8. Prophylaxis. GI prophylaxis not indicated as patient is eating. Continue with SCDs for DVT prophylaxis. 9. Disposition. The patient likely for discharge to home today. CODE STATUS: Full code. Jl Roberson MD cc: [id number] TT: 02/17/2017 09:55:20 Confirmation # [id number] Dictation # [id number] cheri MTDD
--- NOTE | 2017-02-17 10:41 | PN ---
DATE: 02/17/2017 HISTORY: The patient is without shortness of breath, without chest pain. The patient is status post PTCA and stent. PHYSICAL EXAMINATION: VITAL SIGNS: Blood pressure is 137/73, the heart rate is in the 80s. NECK: Negative JVD. LUNGS: Without rales. HEART: Reveals S1, S2. EXTREMITIES: Without edema. LABORATORIES: Hemoglobin is 9.7. Chemistries: Glucose is 123. IMPRESSION: 1. Status post non-ST elevation myocardial infarction. 2. Multivessel coronary artery disease. 3. Successful percutaneous transluminal coronary angioplasty and stent with drug-eluting stents. 4. Acute systolic congestive heart failure which is better. 5. Mild dilated cardiomyopathy. 6. Diabetes mellitus. 7. Morbid obesity. Given these findings, the patient is stable for discharge. I have discussed with the patient her car diac risk reduction program, including necessary weight loss. I have discussed her medications with her in detail. The patient is to return next week for PTCA and stent of an LAD and diagonal vessel. Cb Leong MD cc: [id number] TT: 02/17/2017 10:40:45 Confirmation # [id number] Dictation # [id number] tn
--- NOTE | 2017-02-17 11:08 | CARD ---
APPROVED REPORT EXAM: Two-dimensional and M-mode echocardiogram with Doppler and color Doppler. Other Information Quality : FairRhythm : INDICATION Congestive Heart Failure 2D DIMENSIONS Left Atrium (2D)4.1 (1.6-4.0cm)IVSd1.3 (0.7-1.1cm) LVDd5.4 (3.9-5.9cm)LVOT Diameter2.3 (1.8-2.4cm) PWd1.3 (0.7-1.1cm)LVDs4.2 (2.5-4.0cm) FS (%) 21.7 % M-Mode DIMENSIONS Left Atrium (MM)4.90 (2.5-4.0cm)Aortic Root3.10 (2.2-3.7cm) Aortic Cusp Exc.1.60 (1.5-2.0cm) Aortic Valve AoV Peak Jvcnlyjx639.0cm/sAoV VTI32.3cmAO Peak GR.17mmHg LVOT Peak Gwfhoycf32.7cm/sLVOT VTI15.60cmAO Mean GR.7mmHg TOM (VMAX)1.28kq2LCK (VTI)2.00cm2 Mitral Valve MV E Iixgwevw830.0cm/sMV E Peak Gr.90mmHgMV A Qopbupxd09.0cm/s E/A ratio1.5 TDI Lateral E' Peak V5.07cm/sMedial E' Peak V3.82cm/sE/Lateral E'21.7 E/Medial E'28.8 Tricuspid Valve TR Peak Uajnlevz365ki/sTR Peak Gr.97jyUdMMFZ83zuBz LEFT VENTRICLE The left ventricle is normal size. There is mild concentric left ventricular hypertrophy. Left ventricle systolic function is moderately impaired. There is moderate global hypokinesis. RIGHT VENTRICLE The right ventricle is normal size. ATRIA The left atrium is mildly dilated. The right atrium size is normal. The interatrial septum is intact with no evidence for an atrial septal defect. AORTIC VALVE The aortic valve is moderately calcified. MITRAL VALVE The mitral valve is normal in structure. Mitral regurgitation is mild. TRICUSPID VALVE The tricuspid valve is normal in structure. There is mild tricuspid regurgitation. There is moderate to severe pulmonary hypertension. GREAT VESSELS The aortic root is normal in size. PERICARDIAL EFFUSION There is no pericardial effusion. <Conclusion> Limited study. The left ventricle is normal size. There is mild concentric left ventricular hypertrophy. There is moderate global hypokinesis. The aortic valve is moderately calcified. Mitral regurgitation is mild. There is mild tricuspid regurgitation. There is moderate to severe pulmonary hypertension.
[2017-02-17 12:45] VITALS: BP 119/65; PULSE 82; RESP 18; TEMP 97.5
--- NOTE | 2017-02-21 11:23 | DS ---
ADMITTING DIAGNOSIS: Acute systolic heart failure exacerbation (new onset). DISCHARGE DIAGNOSIS: Acute systolic heart failure exacerbation, resolved. SECONDARY DIAGNOSES: Double-vessel coronary artery disease status post percutaneous coronary interve ntion with stent placement, non-insulin dependent diabetes mellitus, chronic obstructive pulmonary di sease, hypertension, morbid obesity. CONSULTATIONS: Dr. Leong (cardiology). PROCEDURES: Cardiac catheterization which demonstrated double-vessel CAD and a mildly impaired LVEF of 40% with successful placement of drug-eluting stents to the 95% stenosed mid portion of the LAD. The patient was also noted to have a 95% stenosis of the proximal portion of the circumflex artery. IMAGING STUDIES: Chest x-ray, which demonstrated mild pulmonary venous congestion and a small right pleural effusion. DIAGNOSTIC STUDIES: Transthoracic echocardiogram which demonstrated mild concentric LVH with moderat e global hypokinesis and a moderately calcified aortic valve with moderate to severe pulmonary hypert ension. HISTORY OF PRESENT ILLNESS: The patient is a 61-year-old woman with past medical history of hyperten madelin and chronic obstructive pulmonary disease who presented to [facility] for evaluation of 1-week history of progressively worsening lower extremity edema, dyspnea and 2-3 pillow orthopnea . The patient states that she was in her usual state of health until approximately 7-10 days prior t o presentation to the Emergency Department when she developed mild pedal edema. Over the following s everal days, she reported increased swelling to her lower extremities and subsequent involvement of a bdominal distention. She also reported decreased exercise tolerance and development of 2-3 pillow or thopnea associated with cough intermittently productive of clear sputum. She denied chest pain, feve rs, chills or rigors associated with her symptoms. Given the worsening lower extremity edema, she op french for evaluation in the Emergency Department. Upon arrival to the ED, she was noted to be afebrile and hemodynamically stable; however, was mildly tachypneic with a respiratory rate of 24 and hypoxic with an oxygen saturation of 92% on 2 liters nasal cannula. Initial laboratory studies that were ob tained were largely unremarkable with the exception of a BNP of 3350. Imaging studies including a ch est x-ray demonstrated pulmonary venous congestion with a small right pleural effusion. The patient was started on IV Lasix and admitted to the telemetry [facility] for continued management of new onset acut e systolic heart failure exacerbation. HOSPITAL COURSE: Upon admission to the telemetry a[facility], the patient was maintained on Lasix to facili alan diuresis. Dr. Leong of cardiology was consulted for further evaluation and recommendations. The patient was noted to have satisfactory diuresis over the following 24 hours and significant improvem ent in her presenting symptoms. Cardiac enzymes which were cycled demonstrated an intermediate tropo steffany value and given the patient's new onset heart failure, she was advised that evaluation with cardi ac catheterization is warranted to which the patient was amenable. The patient was taken to the [facility] catheterization suite with Dr. Leong and underwent successful PCI with drug-eluting stent placemen t to a 95% lesion of the mid portion of the LAD. The patient was advised that she had a second criti jorge lesion to the proximal portion of the circumflex artery and that she will be brought back to [facility] for repeat cardiac catheterization and attempts to reperfuse the affected territor y. The patient's post-cardiac catheterization course was unremarkable and by hospital day #3, she wa s deemed stable for discharge to home. CONDITION: Good, improved. DISPOSITION: To home. DISCHARGE MEDICATIONS: Aspirin 325 mg p.o. daily, Effient 10 mg p.o. daily, lisinopril 40 mg p.o. da matthias, Symbicort 160/4.5 mcg inhaled b.i.d., ProAir HFA 2 puffs q. 4-6 hours p.r.n. dyspnea or wheeze. DISCHARGE INSTRUCTIONS: The patient was advised to adhere to post-cardiac catheterization instructio ns as per Dr. Leong. The patient was also advised that if she has any recurrence of her symptoms or a ny development of chest pain or significant pain at her cardiac catheterization site to present to he r PMD or to the nearest Emergency Department immediately. FOLLOWUP: The patient to follow up with her PMD within 1 week of discharge. The patient to follow u p with Dr. Leong as scheduled. Jl Roberson MD cc: [id number] TT: 02/21/2017 11:22:46 an
--- NOTE | 2017-02-23 17:52 | DS ---
The patient is currently in room 273, bed 3. The patient was admitted and had a balloon angioplasty with cath done yesterday. She was retaining overnight in the hospital on a telemetry unit. There dooley ve been no acute events. PHYSICAL EXAMINATION: VITAL SIGNS: This morning are a temperature of 97.5, pulse rate of 82, blood pressure of 119/65 and respiratory rate of 18. LUNGS: Clear. HEART: Regular rate and rhythm. ABDOMEN: Benign. NEUROLOGIC: The patient is intact. The patient will be discharged in improved condition and continue on outpatient medications. DISCHARGE DIAGNOSES: 1. Coronary artery disease. 2. Congestive heart failure. 3. Hyperlipidemia. Pankaj Roberson MD cc: [id number] TT: 02/23/2017 17:51:08 sn
== END 2017-02-17 14:15 | disposition home or self-care (01) | DRG 246 ==
LOC: ED 17:47 → ERH 19:38 → 2RNO 23:14 → OBSVTOIN 02-14 15:50 → 2RSO 02-16 09:19
PROVIDERS: ADMIT Student in an Organized Health Care Education/Training Program; ATTEND Student in an Organized Health Care Education/Training Program
PROC: 027034Z Dilation of Coronary Artery, One Artery with Drug-eluting Intraluminal Device, Percutaneous Approach (ICD-10-PCS; principal; 2017-02-16)
PROC: 4A023N7 Measurement of Cardiac Sampling and Pressure, Left Heart, Percutaneous Approach (ICD-10-PCS; 2017-02-16)
PROC: B2051ZZ Plain Radiography of Left Heart using Low Osmolar Contrast (ICD-10-PCS; 2017-02-16)
PROC: B2011ZZ Plain Radiography of Multiple Coronary Arteries using Low Osmolar Contrast (ICD-10-PCS; 2017-02-16)
PROC: 3E033PZ Introduction of Platelet Inhibitor into Peripheral Vein, Percutaneous Approach (ICD-10-PCS; 2017-02-16)
DX: I21.4 Non-ST elevation (NSTEMI) myocardial infarction (principal); I50.21 Acute systolic (congestive) heart failure; I25.10 Atherosclerotic heart disease of native coronary artery without angina pectoris; I47.2 Ventricular tachycardia; I42.0 Dilated cardiomyopathy; Z68.43 Body mass index [BMI] 50.0-59.9, adult; I11.0 Hypertensive heart disease with heart failure; E66.01 Morbid (severe) obesity due to excess calories; E11.9 Type 2 diabetes mellitus without complications; J44.9 Chronic obstructive pulmonary disease, unspecified; D50.9 Iron deficiency anemia, unspecified; E87.6 Hypokalemia; E78.00 Pure hypercholesterolemia, unspecified; Z87.891 Personal history of nicotine dependence

== ENCOUNTER 2017-02-22 06:20 | Day surgery (SDC) | payer BC ==
[2017-02-21 11:44] VITALS: BMI 50.4
[2017-02-22] MEDS ORDERED: Lidocaine 2% Inj (20ml) ONE (06:54)
[2017-02-22] MEDS ORDERED: Iodixanol 320 MG/ML 100 ML BOTTLE IV ONE (06:55)
[2017-02-22] MEDS ORDERED: Nitroglycerin 50mg in D5W 250 ML IV ONE (06:55)
[2017-02-22] MEDS ORDERED: Iohexol 350mgl/ml 50 ML ONE (06:55)
[2017-02-22] MEDS ORDERED: Iodixanol 320 MG/ML 200 ML BOTTLE IV ONE (06:55)
[2017-02-22] MEDS ORDERED: Phenylephrine 10 mg/ml Inj ONE (06:55)
[2017-02-22 07:03] LABS: ADD MANUAL DIFF? NO; BASO # 0.16 K/mm3 (0.0-2.0); BASO % 1.5 % (0.0-3.0); EOS # 0.3 (0.0-0.7); EOS % 2.8 % (1.5-5.0); GRAN # 8.12 (1.4-6.5); HEMATOCRIT 33.8 % (36.0-48.0); LYMPH # 1.2 (1.2-3.4); LYMPH % 11.6 % (22.0-35.0); MEAN CELL VOLUME 75.6 fL (80.0-105.0); MEAN CORPUSCULAR HEMOGLOBIN 22.8 pg (25.0-35.0); MEAN CORPUSCULAR HGB CONC 30.2 g/dl (31.0-37.0); MEAN PLATELET VOLUME 9.5 fl (7.0-11.0); MONO # 0.8 (0.1-0.6); MONO % 7.1 % (1.0-6.0); PLATELET COUNT 281 10^3/uL (120.0-450.0); RED CELL DISTRIBUTION WIDTH 15.5 % (11.5-14.5); WHITE BLOOD COUNT 10.6 10^3/ul (4.5-11.0)
[2017-02-22 07:11] LABS: INR 1.02 (0.93-1.08); PARTIAL THROMBOPLASTIN TIME 23.9 Seconds (23.7-30.8)
[2017-02-22 07:14] LABS: BLOOD UREA NITROGEN 14 mg/dL (7-21); CALCIUM 8.3 mg/dL (8.4-10.5); CARBON DIOXIDE 32 mmol/L (21-33); CHLORIDE 101 mmol/L (98-107); CHOLESTEROL 94 mg/dL (130-200); GFR AFRICAN-AMERICAN > 60; GLUCOSE,RANDOM 130 mg/dL (70-110); POTASSIUM 3.6 mmol/L (3.6-5.0); SODIUM 141 mmol/L (132-148)
[2017-02-22] MEDS ORDERED: Midazolam 2 MG/2 ML VIAL ONE ×2 (07:27→07:58)
[2017-02-22] MEDS ORDERED: Morphine 2 mg/ml ISec ONE (08:58)
[2017-02-22] MEDS ORDERED: Sodium Chloride 0.9% 1,000 ML IV SCH (09:45)
--- NOTE | 2017-02-22 10:14 | CARDCATH ---
PROCEDURE DATE: 02/22/2017 The patient has documented multivessel CAD, with multiple cardiac risk factors including morbid obesi ty. She presents for PTCA and stent. PROCEDURE: Coronary angiography followed by PTCA and stent of the circumflex artery. The left femoral artery was cannulated with a 6-Tajik sheath. There were no complications. Findings on catheterization revealed a left main artery that was unremarkable. The LAD revealed a patent stent in its mid-portion that was placed last week. The proximal circumflex revealed a 90% stenosis in its proximal portion. The circumflex was markedly tortuous. The patient was started on intravenous Angiomax. The guiding catheter was placed in the ostium of th e left main. An 0.014 ATW wire was used to cross the lesion. A 2.0 followed by a 2.5 balloon was utilized to dilate the lesion. Attempt at placing a drug-eluting stent was not possible, given the marked tortuosity of the vessel. Repeat coronary angiography revealed an improved the vessel, however, there were still areas of resid ual stenoses and a small dissection noted in the proximal portion that was not flow limiting. Repeat coronary angiography 20 minutes later revealed an improvement of the appearance of the vessel with T IMI 3 flow. The patient is chest pain free. Angio-Seal was used to close the femoral artery site. The patient tolerated the procedure well. In summary, the procedure was successful for PTCA balloon angioplasty of the proximal circumflex ryan ry. A stent could not be placed to the marked tortuosity. The coronary angiography revealed a patent stent in the mid-portion of the LAD that was placed last w [facility]. Given these findings, the patient will remain on aspirin as well as Effient, with Effient for at leas t 1 year. The patient is resistant to Plavix measured by PRU. Given these findings, the patient needs to undergo a strict cardiac risk reduction program. I have d iscussed this with the patient and daughter in detail. Cb Leong MD cc: [id number] TT: 02/22/2017 10:13:52 jn
--- NOTE | 2017-02-22 11:24 | HP ---
HISTORY OF PRESENT ILLNESS: The patient is a 61-year-old woman with past medical history of hypertension and COPD who was recently discharged from [facility] (discharged on 02/17/2017) after being admitted for new onset acute systolic heart failure. During that hospitalization, the patient underwent cardiac catheterization with Dr. Leong as workup of her new onset acute systolic heart failure with findings demonstrating double-vessel CAD. The patient underwent successful PCI with drug-eluting stent placement to the 95 % stenosed mid portion of the LAD. Arrangements were made at that time to have the patient return the following week to attempt revascularization of the 95% stenosis of the proximal portion of the circumflex artery. The patient is now status post cardiac catheterization with Dr. Leong. However, given the tortuosity of the culprit vessel, stent placement was not feasible, and thus, the patient underwent balloon angioplasty. She was, subsequently, transferred to the telemetry [facility] for continued post-cardiac catheterization care. PAST MEDICAL HISTORY: As per HPI, also morbid obesity. PAST SURGICAL HISTORY: . ALLERGIES: Strawberries (cause rash). MEDICATIONS: Symbicort 160/4.5 mcg 1 puff b.i.d., ProAir HFA 2 puffs q. 4-6 hours p.r.n. dyspnea or wheeze, lisinopril 40 mg p.o. daily, Effient 10 mg p.o. daily, and aspirin 325 mg p.o. daily. FAMILY HISTORY: Significant for hypertension and diabetes. SOCIAL HISTORY: The patient reports a former [id number] smoking history, but quit 15 years ago. She reports social alcohol use, but denies illicit drug abuse. REVIEW OF SYSTEMS: A 14-point review of systems is negative except as per HPI. PHYSICAL EXAMINATION: VITAL SIGNS: Temperature 98, pulse 90, blood pressure 147/79, respiratory rate 18, oxygen saturation 98% on room air. GENERAL: Morbidly obese woman, lying in bed in no apparent distress. HEENT: PERRL. EOMI. No scleral icterus, no conjunctival pallor. NECK: No JVD, no bruits. LUNGS: Clear to auscultation. CARDIOVASCULAR: Regular rate and rhythm. Normal S1 and S2. ABDOMEN: Obese, normoactive bowel sounds, soft, nontender, nondistended. EXTREMITIES: Trace lower extremity edema bilaterally. No femoral bruits. No hematoma. Cardiac catheterization site appears clean, dry, and intact. NEUROLOGIC: Awake, alert, and oriented x 3. No focal motor deficits. LABORATORY DATA: WBC 10.6, hemoglobin 10, hematocrit 34, platelets 281. Chemistry reviewed and unremarkable. ASSESSMENT: The patient is a 61-year-old woman with past medical history of hypertension, chronic obstructive pulmonary disease, morbid obesity, and newly- diagnosed double-vessel coronary artery disease with a recent admission to [facility] for new onset acute systolic heart failure exacerbation, who returned for previously scheduled cardiac catheterization in an attempt to revascularize the previously noted 95% stenosis to the proximal portion of the circumflex artery. PLAN: 1. CAD status post percutaneous coronary intervention with drug-eluting stent placement to 95% stenosis of the mid portion of the LAD, status post balloon angioplasty of the 95% portion of the proximal circumflex artery. Continue with post-catheterization care, as per Dr. Leong. Continue with aspirin 81 mg p.o. daily, Effient 10 mg p.o. daily, and Lipitor 40 mg p.o. daily. 2. Systolic heart failure. The patient has diuresed well since her last hospitalization. The patient will require repeat echocardiography, now that she is status post cardiac catheterization, to reassess LV function, with the hope that revascularization will improve her cardiac function. 3. COPD. Continue with supplemental oxygen and bronchodilators as needed. 4. Hypertension. Blood pressure controlled. Continue with lisinopril 40 mg p.o. daily. 5. Morbid obesity. The patient has been counseled on the need for lifestyle modifications. 6. Microcytic anemia. Labs demonstrate H and H at the patient's baseline. We will arrange for outpatient GI followup. 7. Type 2 diabetes mellitus. Laboratory studies from prior admission demonstrate an A1c of 6.6. As above, the patient has been counseled on lifestyle modifications. 8. Prophylaxis. GI prophylaxis not indicated, as the patient is eating. Continue with SCDs for DVT prophylaxis. CODE STATUS: Full code. Jl Roberson MD cc: [id number] TT: 02/22/2017 11:24:23 jn [email or web address]
[2017-02-22] MEDS: Albuterol-Ipratrop 3 mg / 0.5 (3 ml) UD IH SCH ×3 (11:42→19:43)
--- NOTE | 2017-02-22 15:23 | CARD ---
APPROVED REPORT EKG Measurement Heart [id number] <Conclusion> Sinus rhythm with premature atrial complexes Left anterior fascicular block Nonspecific T wave abnormality Prolonged QT Abnormal ECG
[2017-02-22 18:50] VITALS: RESP 20
--- NOTE | 2017-02-22 21:38 | CP.PCM.PN ---
Subjective - Date & Time of Evaluation Date of Evaluation: 02/22/17 Time of Evaluation: 21:38 - Subjective Subjective: S:Patient was seen at bedside because she requested a sleeping pill. Has no other complaints now. Denies chest pain , sob. Pertinent medical record was reviewed. O: Last Vital Signs 3 Temp 98.4 F 02/22/17 23:45 Pulse 79 02/22/17 23:45 Resp 20 02/22/17 23:45 BP 136/88 02/22/17 23:45 Pulse Ox 98 02/22/17 23:45 Awake, alert, not in distress. LUNGS:Normal breathing pattern. NEURO:Speech normal. A:Adjustment insomnia. P:Ambien 5 mg PO x 1. Objective - Vital Signs/Intake and Output Vital Signs (last 24 hours): Temp Pulse Resp BP Pulse Ox 97.5 F L 81 20 151/97 H 98 02/22/17 20:51 02/22/17 20:51 02/22/17 20:51 02/22/17 20:51 02/22/17 06:45 - Medications Medications: Current Medications Albuterol/Ipratropium (Duoneb 3 Mg/0.5 Mg (3 Ml) Ud) 3 ml [id number] Last Admin: 02/22/17 19:43 Dose: 3 ml Aspirin (Ecotrin) 81 mg PO DAILY [facility] Last Admin: 02/22/17 10:36 Dose: Not Given Atorvastatin Calcium (Lipitor) 40 mg PO DIN [facility] Last Admin: 02/22/17 18:36 Dose: 40 mg Lisinopril (Zestril) 40 mg PO [facility]ILY [facility] Prasugrel (Effient) 10 mg PO [facility]ILY [facility] Last Admin: 02/22/17 10:37 Dose: Not Given - Labs Labs: 02/22/17 07:00 02/22/17 06:50 PT 11.0 Seconds (9.9-11.8) 02/22/17 06:50 INR 1.02 (0.93-1.08) 02/22/17 06:50 APTT 23.9 Seconds (23.7-30.8) 02/22/17 06:50
[2017-02-23] MEDS: Albuterol-Ipratrop 3 mg / 0.5 (3 ml) UD IH SCH ×3 (04:43→07:40)
[2017-02-23 05:40] VITALS: BP 122/64; PULSE 92; TEMP 97.9; O2SAT 99
[2017-02-23 07:17] LABS: ADD MANUAL DIFF? NO
[2017-02-23 07:29] LABS: BASO # 0.08 K/mm3 (0.0-2.0); BASO % 0.8 % (0.0-3.0); EOS # 0.3 (0.0-0.7); EOS % 2.7 % (1.5-5.0); GRAN # 7.39 (1.4-6.5); GRAN % 76.1 % (50.0-68.0); HEMATOCRIT 32.6 % (36.0-48.0); LYMPH # 1.2 (1.2-3.4); LYMPH % 12.6 % (22.0-35.0); MEAN CELL VOLUME 75.1 fL (80.0-105.0); MEAN CORPUSCULAR HEMOGLOBIN 22.4 pg (25.0-35.0); MEAN CORPUSCULAR HGB CONC 29.8 g/dl (31.0-37.0); MEAN PLATELET VOLUME 9.5 fl (7.0-11.0); MONO # 0.8 (0.1-0.6); MONO % 7.8 % (1.0-6.0); PLATELET COUNT 282 10^3/uL (120.0-450.0); RED CELL DISTRIBUTION WIDTH 15.6 % (11.5-14.5); WHITE BLOOD COUNT 9.7 10^3/ul (4.5-11.0)
[2017-02-23 07:47] LABS: BLOOD UREA NITROGEN 10 mg/dL (7-21); CALCIUM 8.2 mg/dL (8.4-10.5); CARBON DIOXIDE 31 mmol/L (21-33); CHLORIDE 101 mmol/L (95-110); GFR AFRICAN-AMERICAN > 60; GLUCOSE,RANDOM 112 mg/dL (70-110); POTASSIUM 3.8 mmol/L (3.6-5.0); SODIUM 141 mmol/L (132-148)
--- NOTE | 2017-02-23 09:28 | PN ---
DATE: 02/23/2017 The patient is chest pain free. Blood pressure 122/64, the heart rate in the 80s. NECK: Negative JVD. LUNGS: Without rales. HEART: Reveals S1, S2. EXTREMITIES: No hematoma in the groin site. LABORATORIES: Hemoglobin is 9.7. Chemistries unremarkable. IMPRESSION: 1. Status post percutaneous transluminal coronary angioplasty and stent of circumflex artery. 2. Multivessel coronary artery disease with a patent stent in the left anterior descending. 3. Morbid obesity. 4. Hypertension. 5. Hypercholesterolemia. 6. Plavix resistance. Given these findings, the patient can be discharged today from a cardiac perspective. I have discuss ed her medications with the patient in detail. She will begin a cardiac risk reduction program which would include cardiac rehab as well. Cb Leong MD cc: [id number] TT: 02/23/2017 09:28:31 Confirmation # [id number] Dictation # [id number] yanet
--- NOTE | 2017-02-23 13:26 | CARD ---
APPROVED REPORT EKG Measurement Heart [id number] <Conclusion> Normal sinus rhythm with sinus arrhythmia Left axis deviation Nonspecific T wave abnormality Abnormal ECG
== END 2017-02-23 14:18 | disposition home or self-care (01) ==
LOC: CATH 06:20 → 2RSO 09:44 → CATH 02-23 14:18
PROVIDERS: ATTEND Internal Medicine
DX: I25.10 Atherosclerotic heart disease of native coronary artery without angina pectoris (principal); I50.21 Acute systolic (congestive) heart failure; J44.9 Chronic obstructive pulmonary disease, unspecified; I10 Essential (primary) hypertension; Z79.82 Long term (current) use of aspirin; F51.02 Adjustment insomnia; E78.00 Pure hypercholesterolemia, unspecified; E66.01 Morbid (severe) obesity due to excess calories; E11.9 Type 2 diabetes mellitus without complications; Z79.899 Other long term (current) drug therapy; Z87.891 Personal history of nicotine dependence; Z95.5 Presence of coronary angioplasty implant and graft; D50.9 Iron deficiency anemia, unspecified
CPT/HCPCS: 36415; 80048; 80061; 85025; 85576; 85610; 85730; 86850; 86900; 92920; 93005; 94640 ×2; 99152; 99153; C1725 ×3; C1760; C1769 ×4; C1874; C1887 ×2; C2629; J0583; J1644; J2250; J2270; J3010; J7040 ×2; Q9967